=== PATIENT | female | born 1965 | race Caucasian/White ===

== ENCOUNTER 2016-12-12 08:36 | Inpatient (IN) | payer MEDICAID ==
[2016-12-12 09:27] LABS: % IMMATURE GRANULYOCYTES 0.5 % (0.0-1.1); ABSOLUTE IMMATURE GRANULOCYTES 0.04 10^3/uL (0.00-0.10); ADD DIFF? NO; ADD MORPH? NO; ADD SCAN? NO; ATYPICAL LYMPHOCYTE FLAG 10 (0-99); FRAGMENT RBC FLAG 0 (0-99); HEMATOCRIT 37.8 % (38.0-47.0); HEMOGLOBIN 12.6 g/dL (12.6-16.3); LEFT SHIFT FLG 0 (0-99); LIPEMIA HEMOLYSIS FLAG 80 (0-99); MEAN CELL HEMOGLOBIN 30.1 pg (27.9-34.1); MEAN CELL HEMOGLOBIN CONCENTR. 33.3 g/dL (32.4-36.7); MEAN CELL VOLUME 90.2 fL (81.5-99.8); MEAN PLATELET VOLUME 9.8 fL (8.7-11.7); PLATELET CLUMPS FLAG 0 (0-99); PLATELET COUNT 270 10^3/uL (150-400); RED BLOOD CELL COUNT 4.19 10^6/uL (4.18-5.33); RED CELL DISTRIBUTION WIDTH 13.1 % (11.5-15.2)
[2016-12-12 09:34] LABS: ANION GAP 15 mEq/L (8-16); CALCIUM 9.3 mg/dL (8.5-10.4); CARBON DIOXIDE 20 mEq/l (22-31); CHLORIDE 107 mEq/L (97-110); CREATININE 0.8 mg/dL (0.6-1.0); ETHANOL SERUM < 10 mg/dL (0-10); GLOMERULAR FILTRATION RATE > 60; GLUCOSE 86 mg/dL (70-100); SODIUM 142 mEq/L (134-144)
--- NOTE | 2016-12-12 09:45 | EDPHY ---
H & P Stated Complaint: M1 erratic behaviors - Personal History LMP (Females 10-55): Now Current Tetanus/Diphtheria Vaccine: Unsure Current Tetanus Diphtheria and Acellular Pertussis (TDAP): Unsure - Medical/Surgical History Hx Asthma: No Hx Chronic Respiratory Disease: No Hx Diabetes: No Hx Cardiac Disease: No Hx Renal Disease: No Hx Cirrhosis: No Hx Alcoholism: No Hx HIV/AIDS: No Hx Splenectomy or Spleen Trauma: No Other PMH: unsure - Social History Smoking Status: Current every day smoker Time Seen by Provider: 12/12/16 09:01 HPI/ROS: Chief complaint: Mental health hold History of present illness: This is a 51-year-old female brought to the emergency department by police on a mental health hold. According to the mental health hold the patient is thought to be a danger to herself. She has apparently been off of her psychiatric medications recently and has been acting erratically. On my evaluation patient states she feels fine. She denies suicidal or homicidal ideation. She denies illness or injury. However, she does state she needs to leave because her and her family need to leave immediately for [place], [place], they must leave everything behind, they are going there for their own safety. She also states she needs to see her doctor as her and her daughter have HIV infections. Review of systems: A 10 point review of systems was obtained and other than described above was negative (David Santillan) - Physical Exam Exam: General Appearance: Alert, nontoxic. Eyes: Pupils equal and round no pallor or injection. ENT, Mouth: Mucous membranes moist. Respiratory: There are no retractions, lungs are clear to auscultation. Cardiovascular: Regular rate and rhythm. Gastrointestinal: Abdomen is soft and non tender, no masses, bowel sounds normal. Neurological: Alert. Strength and sensation intact and symmetrical. Skin: Warm and dry, no rashes. Musculoskeletal: Neck is supple non tender. Extremities are symmetrical, full range of motion. Psychiatric: Patient is oriented X 3, there is no agitation. (David Santillan) Constitutional: Initial Vital Signs Temperature (C) 36.3 C 12/12/16 08:39 Heart Rate 84 12/12/16 08:39 Respiratory Rate 16 12/12/16 08:39 Blood Pressure 116/77 12/12/16 08:39 O2 Sat (%) 96 12/12/16 08:39 O2 Delivery Mode Room Air Allergies/Adverse Reactions: No Known Allergies Allergy (Unverified 12/12/16 08:41) Home Medications: Medication Instructions Recorded NK [No Known Home Meds] 12/13/16 Medical Decision Making ED Course/Re-evaluation: Patient seen under the supervision of my secondary supervising physician Dr. Guillermina Dimas. Patient presents to the emergency department on a mental health hold. She is medically evaluated and cleared for psychiatric evaluation. The psychiatric team believes she warrants inpatient admission. This is being arranged at this time. Care of patient is turned over to Dr. Estuardo Polanco at end of shift. (David Santillan) [address] Polanco pending placement. 0121 patient has been accepted at [facility] [address] [place] [address] Layne. I have completed the EMTALA form. (Dc Lowe) Patient has remained stable on my shift. At midnight they are still looking for placement. Care to Dr. Lowe at midnight (Estuardo Polanco) Differential Diagnosis: Included but not limited to substance abuse, depression, bipolar, schizophrenia (David Santillan) - Data Points Laboratory Results: Laboratory Results 12/12/16 09:00 12/12/16 09:00 Medications Given: Discontinued Medications Diphenhydramine HCl (Benadryl) 25 mg PO ONCE ONE Stop: 12/13/16 05:31 Last Admin: 12/13/16 05:34 Dose: 25 mg Olanzapine (Olanzapine) 10 mg PO ONCE ONE Stop: 12/13/16 02:23 Last Admin: 12/13/16 02:22 Dose: 10 mg Thiamine HCl (Vitamin B-1) 100 mg PO ONCE ONE Stop: 12/13/16 12:09 Last Admin: 12/13/16 13:30 Dose: 100 mg Departure - Departure Disposition: [facility] IP Clinical Impression: Acute psychosis Condition: Fair
[2016-12-13] MEDS ORDERED: OLANZapine DISINTEGR 5 MG TAB ONE (02:12)
[2016-12-13] MEDS ORDERED: OLANZapine DISINTEGR 10 MG TAB ONE (02:18)
[2016-12-13] MEDS ORDERED: OLANZapine 10 MG TAB PO ONE (02:22)
[2016-12-13] MEDS ORDERED: MAG HYDROX/AL HYDROX/SIMETH 30 ML UDCUP PO PRN (04:43)
[2016-12-13] MEDS ORDERED: NICOTINE POLACRILEX 2 MG GUM B PRN (04:43)
[2016-12-13] MEDS ORDERED: LORazepam 0.5 MG TAB PO PRN (04:43)
[2016-12-13] MEDS ORDERED: OLANZapine DISINTEGR 5 MG TAB PO PRN (04:45)
[2016-12-13] MEDS ORDERED: diphenhydrAMINE 25 MG CAP PO ONE (05:30)
[2016-12-13] MEDS: ACETAMINOPHEN 325 MG TAB PO PRN (08:46)
[2016-12-13] MEDS ORDERED: chlordiazePOXIDE 25 MG CAP PO PRN (12:08)
[2016-12-13] MEDS ORDERED: PROMETHAZINE HCL 25 MG TAB PO PRN (12:08)
[2016-12-13] MEDS ORDERED: THIAMINE HCL 100 MG TAB PO ONE (12:08)
[2016-12-13] MEDS ORDERED: PROMETHAZINE HCL 25 MG SUPPR PR PRN (12:08)
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
[2016-12-13] MEDS: AQUAPHOR OINTMENT 3.5 OZ JAR TP SCH ×2 (15:05→20:08)
--- NOTE | 2016-12-13 18:52 | BCON ---
[f rep st] BEHAVIORAL HEALTH CONSULTATION INTERNAL MEDICINE CONSULTATION DATE OF CONSULTATION: 12/13/2016 REFERRING PHYSICIAN: Yvonne Layne MD REASON FOR REFERRAL: Medical clearance for inpatient behavioral health stay. HISTORY OF PRESENT ILLNESS: This patient was brought to the emergency department on an M1 hold by police. Per the emergency department report, she had been off her psychiatric medications recently and was acting erratically. She was evaluated by the mental health team and admitted for further psychiatric care. She reports that she has a recent diagnosis of HIV at [facility], and she complains of dry skin. She otherwise is without any acute complaints. PAST MEDICAL HISTORY: 1. Mental health issues with the diagnosis of bipolar disorder in the chart. 2. Breast mass. PAST SURGICAL HISTORY: She reports a lumpectomy in the left breast and a section. MEDICATIONS: She reports she was prescribed an antihistamine for pruritus at [facility] and apparently she has previously been on psychiatric medications but has not been compliant. ALLERGIES: No known drug allergies. SOCIAL HISTORY: Complicated. Most recently she has been homeless. She is a smoker but reports she has been trying to quit. She has a history of alcohol and polysubstance abuse. She reports that she has been and has an 11- year-old daughter. FAMILY HISTORY: Noncontributory. REVIEW OF SYSTEMS: She reports that her skin feels irritated, especially over her face and legs. She also reports irritation in her perineal area and says that this is related to not being able to shave while she is on the inpatient behavioral health unit. She denies cough, dyspnea, fevers, chills, recent weight change, nausea, vomiting, constipation, diarrhea. joint swelling, and joint pain. Otherwise, a 10-point review of systems is negative. She does request melatonin for sleep. PHYSICAL EXAMINATION: VITAL SIGNS: Blood pressure is 137/67, heart rate is 73 , respiratory rate is 16, oxygen saturation is 97% on room air, temperature is 36.4 degrees centigrade. Her weight is 56.7 kg, for a body mass index of 23.6. GENERAL: This is a well-nourished, well-developed woman who appears her chronologic age, cooperative, and in no acute distress. HEENT: Extraocular movements are intact. Pupils are equal, round, and reactive to light. Mucous membranes are moist. Airway is uncrowded, Mallampati class I. Dentition is in good condition. NECK: Supple. HEART: Regular rate and rhythm with no murmurs , rubs, or gallops. LUNGS: Clear to auscultation bilaterally. ABDOMEN: Soft , nontender, nondistended with normoactive bowel sounds. EXTREMITIES: No cyanosis, clubbing, or edema. NEUROLOGIC: Alert and oriented to her general situation and location. Month and date were not tested. Cranial nerves 2 through 12 are grossly intact. There is no focal weakness. Sensation is intact to light touch, and gait is within normal limits. SKIN: She has a very short haircut. There are patches of scalp that are bare of hair, especially over the frontal vertex. She has dry skin but no jalen rash. LABORATORY STUDIES: Drawn in the emergency department, CBC was overall within normal limits. She had a very slight decrement in hematocrit at 37.8 with the lower limit of normal being 38. She had an increase in relative percent of neutrophils, but absolute white blood cell count and differential were within normal limits. Serum chemistry revealed a slightly low carbon dioxide at 20. Otherwise, renal function and electrolytes were within normal limits, and beta hCG was negative for . Toxicology screen in the serum was negative for ethyl alcohol, and the urine was negative for any substances of abuse. ASSESSMENT/RECOMMENDATIONS: 1. Xerosis: I will prescribe an emollient for dry skin. 2. Alopecia: May be due to the stress of her current situation. I will add a TSH to labs that were drawn yesterday to be thorough. 3. Self report of human immunosuppressive virus positive. Will ask nursing staff to obtain records from the [facility] to verify, and if no records are available, human immunosuppressive virus testing would be appropriate. 4. I see no medical contraindications to this patient's continued stay on the inpatient behavioral health unit or to any psychiatric medications or procedures. Thank you very much for including me in the care of this patient. Please do not hesitate to contact me or the hospitalists service should there be need for further medical evaluation. /[id number]/MODL MTDD
[2016-12-13] MEDS: OLANZapine DISINTEGR 10 MG TAB PO SCH (20:08)
[2016-12-13] MEDS ORDERED: OLANZapine 10 MG TAB PO SCH (21:00)
[2016-12-14] MEDS: OLANZapine DISINTEGR 10 MG TAB PO SCH ×2 (01:28→20:20)
[2016-12-14] MEDS: ACETAMINOPHEN 325 MG TAB PO PRN ×3 (09:17→20:19)
[2016-12-14] MEDS: MULTIVITAMINS 1 EACH TAB PO SCH (09:18)
[2016-12-14] MEDS: AQUAPHOR OINTMENT 3.5 OZ JAR TP SCH ×2 (09:19→20:19)
[2016-12-14] MEDS: FOLIC ACID 1 MG TAB PO SCH (09:19)
[2016-12-14] MEDS: THIAMINE HCL 100 MG TAB PO SCH (09:22)
--- NOTE | 2016-12-14 12:59 | SOAPPROG ---
SOAP Progress Note Assessment/Plan: Assessment: 12/14/16 12:54 Plan: 1. CCM 2. HIV test negative, TSH WNL 3. CIWA < 4 4. No updates yet on whereabouts of patient's daughter or whether she is still open with [facility]. Subjective: Met with patient and discussed with staff. Patient was dressed in street clothes , wearing a hat. She said she woke up this AM and went to breakfast. She wanted to attend art therapy group, but says she got "frustrated" because a "couple women are bothering me" and says she "did not feel comfortable going to group." So she stayed in her room and took a nap. She denies any AH/VH, and there is no evidence of paranoia or delusions. She does not have pressured speech, racing thoughts, or decreased need for sleep or increased goal-directed activity. Based on these observations, patient does not meet criteria for either a psychotic disorder or bipolar disorder. She denies feeling depressed and reports anxiety is 3 out of 10. She denies any physical sxs of w/d and her CIWA score was < 4. Her vital signs are stable. She denies any thoughts, plan or intent to harm herself or anyone else. Objective: Vital Signs Temp Pulse Resp BP Pulse Ox 36.4 C 78 12 109/64 98 12/14/16 09:01 12/14/16 09:01 12/14/16 09:01 12/14/16 09:01 12/14/16 09:01 MSE: Calm, cooperative, pleasant, wearing hat, sleeveless T-shirt and pants. Affect: Euthymic Mood: "Frustrated" TP: Linear, goal-directed TC: Denies any AH/VH, no evidence of paranoia or delusions, no SI/HI. - Time Spent With Patient Time Spent With Patient: 25" - Pending Discharge Pending Discharge Within 24 Hours: No ICD10 Worksheet Patient Problems: Problems Problem Status Onset Acute psychosis Acute Alcohol use disorder, severe, dependence Acute Substance induced mood disorder Acute - ICD10 Problem Qualifiers (1) Substance induced mood disorder (2) Alcohol use disorder, severe, dependence
[2016-12-14] MEDS: hydrOXYzine HCL 25 MG TAB PO PRN (20:20)
[2016-12-15] MEDS: hydrOXYzine HCL 25 MG TAB PO PRN (07:56)
[2016-12-15] MEDS: FOLIC ACID 1 MG TAB PO SCH (08:41)
[2016-12-15] MEDS: THIAMINE HCL 100 MG TAB PO SCH (08:41)
[2016-12-15] MEDS: ACETAMINOPHEN 325 MG TAB PO PRN (08:41)
[2016-12-15] MEDS: MULTIVITAMINS 1 EACH TAB PO SCH (08:41)
[2016-12-15] MEDS: AQUAPHOR OINTMENT 3.5 OZ JAR TP SCH ×2 (11:10→20:57)
--- NOTE | 2016-12-15 13:01 | SOAPPROG ---
SOAP Progress Note Assessment/Plan: Assessment: 12/14/16 12:54 Plan: 1. CCM 2. HIV test negative, TSH WNL 3. CIWA < 4 4. No updates yet on whereabouts of patient's daughter or whether she is still open with [facility]. 12/15/16 12:31 Plan: 1. CC obtained collateral information from patient's BOC, Valente Walekr, who has medical durable power of tax associate attorney for healthcare decisions (a copy of the medical POA is on the chart). According to BOC, patient has long h/o chronic paranoid schizophrenia. He states she had been taking Seroquel 300mg daily for about 20 years. BOC states this medication was usually sufficient to maintain her in stable condition without severe psychotic episodes. [facility] also relates that patient stopped drinking alcohol in 1988, and as far as he knows, patient has not been using drugs or alcohol in past 20 years. He told CC that patient tells providers that she has been drinking or using drugs b/c she thinks it will get her housing, but BOC says urine drug screens in recent past have always shown no drugs or alcohol use. [facility] states that patient has h/o trichotillomania, and has pulled most of her hair out including her eyebrows. [facility] was also able to confirm that patient's daughter was removed from her custody by [facility] in [facility] and her daughter was placed in foster care there. Patient was living in [facility]p, [facility], in [place] prior to her admission to [facility] in 09/2016. However, BOC states she became paranoid and thought there was a "sex ring" going on at the usp which is how she got admitted to [facility]. [facility] also sent medical records from recent inpatient admission at [facility] in [facility] from 10/05/16 to 10/18/16. The Discharge Summary was written by DAVID Peres, and co-signed by Chris Wilson MD. They noted that patient was initially titrated onto high dose of Seroquel (800mg), but that she refused this dose stating she didn't like the way it made her feel. Prior to admission, patient reported that she had been non-compliant with her outpatient dose of 300mg QHS because it "altered her brain thinking" and she told her providers she would "never go back on it." She just wants "herbs and teas." Patient initially refused Seroquel from 10/07/16 until 10/12/16, when she finally agreed to take Seroquel 100mg QHS upon urging of her BOC. She was titrated up to 300mg QHS at time of discharge. Originally, the plan was for patient to go back to [place] and be seen at [facility] outpatient clinic. However, records indicate on day of discharge, 10/18/16, she took the bus to [place] and had f/u at [facility]. She was discharged on the following meds: 1. Seroquel 300mg PO QHS 2. Tegretol 200mg PO QHS 3. Melatonin 3mg PO QHS 4. Cogentin 1mg PO QHS It doesn't seem like patient ever made it to [place]. According to BOC, FOC wired patient some money and she used it to stay in hotel in [place]. She never went to her f/u appt at [facility] and stopped taking her meds completely. It's still not clear how/why she came to [place]. Of note, physical description of patient at [facility] was that she had "shoulder length blonde hair." Her hair now is close cropped with several bald patches. 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 2. Based on this recently obtained collateral information, MD would make following recommendations to tx plan: -Change Zyprexa to Seroquel since this medication has shown noticeable effects for patient's psychosis over past 20 years -Based on [facility] report of sxs and prior tx/diagnoses, a dx of bipolar does not seem warranted (this was the working dx at [facility]). A more accurate and historically valid dx would be Schizophrenia, paranoid type. Further evidence that supports this is the fact that patient took Seroquel 300mg without any first line mood stabilizer for 20 years and BOC says she was relatively stable on this monotherapy. -D/C CIWA as patient's report of daily vodka use is questionable given BOC's information and lack of BAL in ED. -Patient has not been observed picking her hair on unit. There are some effective behavioral therapies for trichotillomania, but very little clinical trial data to support use of pharamacologic agents. There is some evidence for use of SSRIs in kids, but not very strong evidence for use in adults. This might be something to try once psychosis is better controlled. 3. Will place patient on [facility]. However, since BOC has medical durable POA, he is able to consent to admission as well as give consent for any medications. This MD believes it may also be possible to give IM medications if patient refuses PO meds as long as BOC consents. This can be verified with hospital foreclosure paralegal should the need arise. Subjective: Met with patient and discussed with staff. Please see Plan section of this note for extensive collateral information provided by brother and review of medical records from [facility]. Patient states that she is leaving "at 8am tomorrow " to go to [place], [place]. She continues to insist that her daughter is living there with her boyfriend, even though patient's BOC confirmed her daughter is in foster placement in custody of [facility]. Patient's BOC has medical durable POA, which means he can consent to any medications and treatment. Patient denies any SI/HI. Objective: Vital Signs Temp Pulse Resp BP Pulse Ox 36.6 C 85 14 119/68 96 12/15/16 05:00 12/15/16 05:00 12/15/16 05:00 12/15/16 05:00 12/15/16 05:00 MSE: Patient is wearing black pants and black tank top with zip up sweater, hat and glasses. Affect: Euthymic, not mood congruent Mood: "Anxious", other times states she is doing "pretty good." TP: disorganized, tangential TC: Delusional (about daughter), no SI/HI Insight/Judgment: Impaired - Time Spent With Patient Time Spent With Patient: 30" - Pending Discharge Pending Discharge Within 24 Hours: No ICD10 Worksheet Patient Problems: Problems Problem Status Onset Schizophrenia, paranoid, chronic Acute Trichotillomania Acute Acute psychosis Chronic Alcohol use disorder, severe, in sustained remission Chronic - ICD10 Problem Qualifiers (1) Alcohol use disorder, severe, in sustained remission (2) Schizophrenia, paranoid, chronic (3) Trichotillomania
[2016-12-15] MEDS: MELATONIN 3 MG TAB PO PRN (20:54)
[2016-12-15] MEDS ORDERED: QUEtiapine FUMARATE 100 MG TAB PO SCH (21:00)
[2016-12-16] MEDS: AQUAPHOR OINTMENT 3.5 OZ JAR TP SCH ×2 (08:11→20:33)
[2016-12-16] MEDS: MULTIVITAMINS 1 EACH TAB PO SCH (08:11)
[2016-12-16] MEDS: hydrOXYzine HCL 25 MG TAB PO PRN ×2 (09:48→14:12)
--- NOTE | 2016-12-16 15:44 | SOAPPROG ---
SOAP Progress Note Assessment/Plan: Assessment: 51yo with chronic paranoid SZP and hx of trichtillomania, 20+yr reportedly stable on low dose Seroquel. most recent inpt psych 09/2016 and n/c w / meds after d/c 12/16/16 15:41 slept 8.5hr per staff "I'm leaving at 8pm tonight, I called a cab to take me to [place], I need an antihistamine b/c people here are bugging me, I'm under police protection now." casually dressed, nml speech rate/vol, hair very short and patchy, taking baseball cap on and off, eye contact variable at times nml, then shifting quickly to no clear stimulus, then watching a male walk by and giggling to herself, then downcast with face obscured by cap, mood "I have cramps and you are irritating me", affect labile, TP/TC-+paranoid delusions, insisting she is currently under police protection and can't further discuss why, hypervigilant and seems responding to internal stimuli as noted by briefly whispering to self unrelated to conversation, and laughing inappropriately in response to her own thoughts. t/a having psychic abilities, regarding AH/VH-"I wish they weren't real...I see babies about to come down and Shan when he speaks to me, I help locate bodies after they've ..I'm a messenger and a guide, I have to be so I don't have to sell my body to the devil...my daughter also has this (psychic ability) and I want to learn how to control it so I can teach her..." Maintains firmly that she is despite neg serum Hcg on 12/12, and states she will refuse all meds unless seen by COMPENSATION PROGRAMS MANAGER for her . i/j both poor, cognition intact. PLAN: increase quetiapine to 300mg qhs as reportedly stabilized on this dose in the past encourage use of quetiapine 25mg q4hr prn psychosis on [facility] 12/17/16 16:40 Objective: Vital Signs Temp Pulse Resp BP Pulse Ox 36.5 C 91 14 124/61 H 96 12/16/16 06:00 12/16/16 06:00 12/16/16 06:00 12/16/16 06:00 12/16/16 06:00 - Time Spent With Patient Time Spent With Patient: 35min - Pending Discharge Pending Discharge Within 24 Hours: No Pending Discharge Within 48 Hours: No ICD10 Worksheet Patient Problems: Problems Problem Status Onset Schizophrenia, paranoid, chronic Acute Trichotillomania Acute Acute psychosis Chronic Alcohol use disorder, severe, in sustained remission Chronic
[2016-12-16] MEDS: QUEtiapine FUMARATE 300 MG TAB PO SCH (20:33)
[2016-12-16] MEDS ORDERED: QUEtiapine FUMARATE 200 MG TAB PO SCH ×2 (21:00)
[2016-12-16] MEDS ORDERED: QUEtiapine FUMARATE 100 MG TAB PO SCH (21:00)
[2016-12-17] MEDS: hydrOXYzine HCL 25 MG TAB PO PRN (02:09)
[2016-12-17] MEDS: AQUAPHOR OINTMENT 3.5 OZ JAR TP SCH ×2 (13:33→21:20)
[2016-12-17] MEDS: MULTIVITAMINS 1 EACH TAB PO SCH (13:33)
[2016-12-17] MEDS: QUEtiapine FUMARATE 300 MG TAB PO SCH (22:03)
--- NOTE | 2016-12-17 23:52 | SOAPPROG ---
SOAP Progress Note Assessment/Plan: Assessment: 51yo with chronic paranoid SZP and hx of trichtillomania, 20+yr reportedly stable on low dose Seroquel. most recent inpt psych 09/2016 and n/c w / meds after d/c 12/16/16 15:41 slept 8.5hr per staff "I'm leaving at 8pm tonight, I called a cab to take me to [place], I need an antihistamine b/c people here are bugging me, I'm under police protection now." casually dressed, nml speech rate/vol, hair very short and patchy, taking baseball cap on and off, eye contact variable at times nml, then shifting quickly to no clear stimulus, then watching a male walk by and giggling to herself, then downcast with face obscured by cap, mood "I have cramps and you are irritating me", affect labile, TP/TC-+paranoid delusions, insisting she is currently under police protection and can't further discuss why, hypervigilant and seems responding to internal stimuli as noted by briefly whispering to self unrelated to conversation, and laughing inappropriately in response to her own thoughts. t/a having psychic abilities, regarding AH/VH-"I wish they weren't real...I see babies about to come down and Shan when he speaks to me, I help locate bodies after they've ..I'm a messenger and a guide, I have to be so I don't have to sell my body to the devil...my daughter also has this (psychic ability) and I want to learn how to control it so I can teach her..." Maintains firmly that she is despite neg serum Hcg on 12/12, and states she will refuse all meds unless seen by MANAGER APPLE for her . i/j both poor, cognition intact. PLAN: increase quetiapine to 300mg qhs as reportedly stabilized on this dose in the past encourage use of quetiapine 25mg q4hr prn psychosis on [facility] 12/17/16 16:38 per staff, slept 8hr, remains very psychotic and delusional. took HS meds. states has "vivid nightmares" and interested in a heating and cooling systems engineer consult. numerous requests for chapstick, steroid cream, vanilla and dre Ensure, MVI for her etc. casually dressed, nml/incr speech rate, needing some redirection, incr psychom activity, nml eye contact, mood "good", affect full, TP/TC- tangential, rambling, admits to +AH of a friend which wakes her up every AM, AH are comforting so she is "not by myself", "the other voices are private conversations" she chooses not to share. +delusions of being . t/a young male peers on unit (who are also very psychotic) "like a little big brother" and adds "the men here are funny". denied SI/Hi. i/j poor. PLAN: cont current meds, consider incr tomorrow, encourage use of prns Objective: Vital Signs Temp Pulse Resp BP Pulse Ox 36.4 C 103 H 14 118/77 94 12/17/16 06:00 12/17/16 06:00 12/17/16 06:00 12/17/16 06:00 12/17/16 06:00 - Time Spent With Patient Time Spent With Patient: 25min - Pending Discharge Pending Discharge Within 24 Hours: No Pending Discharge Within 48 Hours: No ICD10 Worksheet Patient Problems: Problems Problem Status Onset Schizophrenia, paranoid, chronic Acute Trichotillomania Acute Acute psychosis Chronic Alcohol use disorder, severe, in sustained remission Chronic
[2016-12-18] MEDS: MULTIVITAMINS 1 EACH TAB PO SCH (08:47)
[2016-12-18] MEDS: AQUAPHOR OINTMENT 3.5 OZ JAR TP SCH ×2 (08:52→21:45)
[2016-12-18] MEDS: QUEtiapine FUMARATE 200 MG TAB PO SCH (21:41)
[2016-12-18] MEDS: hydrOXYzine HCL 25 MG TAB PO PRN (23:28)
[2016-12-18] MEDS: MELATONIN 3 MG TAB PO PRN (23:29)
--- NOTE | 2016-12-18 23:56 | SOAPPROG ---
SOAP Progress Note Assessment/Plan: Assessment: 51yo with chronic paranoid SZP and hx of trichtillomania, 20+yr reportedly stable on low dose Seroquel. most recent inpt psych 09/2016 and n/c w / meds after d/c 12/16/16 15:41 slept 8.5hr per staff "I'm leaving at 8pm tonight, I called a cab to take me to [place], I need an antihistamine b/c people here are bugging me, I'm under police protection now." casually dressed, nml speech rate/vol, hair very short and patchy, taking baseball cap on and off, eye contact variable at times nml, then shifting quickly to no clear stimulus, then watching a male walk by and giggling to herself, then downcast with face obscured by cap, mood "I have cramps and you are irritating me", affect labile, TP/TC-+paranoid delusions, insisting she is currently under police protection and can't further discuss why, hypervigilant and seems responding to internal stimuli as noted by briefly whispering to self unrelated to conversation, and laughing inappropriately in response to her own thoughts. t/a having psychic abilities, regarding AH/VH-"I wish they weren't real...I see babies about to come down and Shan when he speaks to me, I help locate bodies after they've ..I'm a messenger and a guide, I have to be so I don't have to sell my body to the devil...my daughter also has this (psychic ability) and I want to learn how to control it so I can teach her..." Maintains firmly that she is despite neg serum Hcg on 12/12, and states she will refuse all meds unless seen by MEDICAL DELIVERY TECHNICIAN for her . i/j both poor, cognition intact. PLAN: increase quetiapine to 300mg qhs as reportedly stabilized on this dose in the past encourage use of quetiapine 25mg q4hr prn psychosis on [facility] 12/17/16 16:38 per staff, slept 8hr, remains very psychotic and delusional. took HS meds. states has "vivid nightmares" and interested in a contract recruiter consult. numerous requests for chapstick, steroid cream, vanilla and dre Ensure, MVI for her etc. casually dressed, nml/incr speech rate, needing some redirection, incr psychom activity, nml eye contact, mood "good", affect full, TP/TC- tangential, rambling, admits to +AH of a friend which wakes her up every AM, AH are comforting so she is "not by myself", "the other voices are private conversations" she chooses not to share. +delusions of being . t/a young male peers on unit (who are also very psychotic) "like a little big brother" and adds "the men here are funny". denied SI/Hi. i/j poor. PLAN: cont current meds, consider incr tomorrow, encourage use of prns 12/18/16 13:51 slept 4.5hr throwing toiletries away daily and requesting new, asking for more clothes daily too staff setting limits and pt frustrated. making lists of toiletries and wants my signature on this list. disorganized behavior, illogical thought processes. denied current ah/vh but has been noted responding to internal stimuli. denied med s/e. "you are irritating me", denied SI but regarding thoughts to harm others she impusively stated "yeah, you, you are my target and in my zone...I'm and want to improve the rights for women who come here after me..." Then at end of interview, stated "I love you". PLAN: incr seroquel to 400mg qhs with 50mg prns avail cont on [facility] Objective: Vital Signs Temp Pulse Resp BP Pulse Ox 36.4 C 102 H 14 105/58 L 97 12/17/16 06:00 12/18/16 06:00 12/18/16 06:00 12/18/16 06:00 12/18/16 06:00 - Time Spent With Patient Time Spent With Patient: 25min - Pending Discharge Pending Discharge Within 24 Hours: No Pending Discharge Within 48 Hours: No ICD10 Worksheet Patient Problems: Problems Problem Status Onset Schizophrenia, paranoid, chronic Acute Trichotillomania Acute Acute psychosis Chronic Alcohol use disorder, severe, in sustained remission Chronic
[2016-12-19] MEDS: hydrOXYzine HCL 25 MG TAB PO PRN ×4 (07:10→22:53)
[2016-12-19] MEDS: MULTIVITAMINS 1 EACH TAB PO SCH (11:14)
[2016-12-19] MEDS: AQUAPHOR OINTMENT 3.5 OZ JAR TP SCH ×2 (11:16→21:40)
[2016-12-19] MEDS: IBUPROFEN 200 MG TAB PO PRN (18:30)
[2016-12-19] MEDS: QUEtiapine FUMARATE 200 MG TAB PO SCH (21:40)
[2016-12-19] MEDS: MELATONIN 3 MG TAB PO PRN (22:53)
[2016-12-20] MEDS: MULTIVITAMINS 1 EACH TAB PO SCH (07:44)
[2016-12-20] MEDS: hydrOXYzine HCL 25 MG TAB PO PRN ×2 (07:44→18:00)
[2016-12-20] MEDS: AQUAPHOR OINTMENT 3.5 OZ JAR TP SCH ×2 (09:58→22:40)
--- NOTE | 2016-12-20 21:06 | SOAPPROG ---
SOAP Progress Note Assessment/Plan: Assessment: 51yo with chronic paranoid SZP and hx of trichtillomania, 20+yr reportedly stable on low dose Seroquel. most recent inpt psych 09/2016 and n/c w / meds after d/c 12/16/16 15:41 slept 8.5hr per staff "I'm leaving at 8pm tonight, I called a cab to take me to [place], I need an antihistamine b/c people here are bugging me, I'm under police protection now." casually dressed, nml speech rate/vol, hair very short and patchy, taking baseball cap on and off, eye contact variable at times nml, then shifting quickly to no clear stimulus, then watching a male walk by and giggling to herself, then downcast with face obscured by cap, mood "I have cramps and you are irritating me", affect labile, TP/TC-+paranoid delusions, insisting she is currently under police protection and can't further discuss why, hypervigilant and seems responding to internal stimuli as noted by briefly whispering to self unrelated to conversation, and laughing inappropriately in response to her own thoughts. t/a having psychic abilities, regarding AH/VH-"I wish they weren't real...I see babies about to come down and Shan when he speaks to me, I help locate bodies after they've ..I'm a messenger and a guide, I have to be so I don't have to sell my body to the devil...my daughter also has this (psychic ability) and I want to learn how to control it so I can teach her..." Maintains firmly that she is despite neg serum Hcg on 12/12, and states she will refuse all meds unless seen by MAINTAINER OPERATOR for her . i/j both poor, cognition intact. PLAN: increase quetiapine to 300mg qhs as reportedly stabilized on this dose in the past encourage use of quetiapine 25mg q4hr prn psychosis on [facility] 12/17/16 16:38 per staff, slept 8hr, remains very psychotic and delusional. took HS meds. states has "vivid nightmares" and interested in a derrick boat leverman consult. numerous requests for chapstick, steroid cream, vanilla and dre Ensure, MVI for her etc. casually dressed, nml/incr speech rate, needing some redirection, incr psychom activity, nml eye contact, mood "good", affect full, TP/TC- tangential, rambling, admits to +AH of a friend which wakes her up every AM, AH are comforting so she is "not by myself", "the other voices are private conversations" she chooses not to share. +delusions of being . t/a young male peers on unit (who are also very psychotic) "like a little big brother" and adds "the men here are funny". denied SI/Hi. i/j poor. PLAN: cont current meds, consider incr tomorrow, encourage use of prns 12/18/16 13:51 slept 4.5hr throwing toiletries away daily and requesting new, asking for more clothes daily too staff setting limits and pt frustrated. making lists of toiletries and wants my signature on this list. disorganized behavior, illogical thought processes. denied current ah/vh but has been noted responding to internal stimuli. denied med s/e. "you are irritating me", denied SI but regarding thoughts to harm others she impusively stated "yeah, you, you are my target and in my zone...I'm and want to improve the rights for women who come here after me..." Then at end of interview, stated "I love you". PLAN: incr seroquel to 400mg qhs with 50mg prns avail cont on [facility] 12/19/16 12:10 late entry: slept 6hr. remained standing during interview, "I don't feel safe sitting in a chair". maintains delusion about being and therefore med n/c. when offered to recheck with [facility] and show results, pt admitted she would not believe the test anyway. "I will never take meds again". when asked about mood: stated "I miss my child...Are we done? I think we're done", and terminated interview. irritable affect today. some incr psychom activity. +delusions. did not appear responding to int stim, and has not voiced any si/hi. no insight. poor jdgmt. PLAN: cont to offer meds. will consider decr to 300mg qhs of seroquel since started n/ c once dose increased. suspect will need more therapeutic dose, higher, of seroquel before stabilizes or alternative antipsychotic, ideally in IM since w/ hx noncompliance. on [facility] 12/20/16 12:18 Late entry slept 6.5hr per staff. has been washing face excessively with soap, causing some dryness and redness on face. still refusing HS scheduled seroquel. requests motrin, vistaril, incr melatonin at hs, and prn ativan, oatmeal soap. "and I don't want you to check a test, b/c I want to be with my when it's checked". States she will first need to pray and communicate with her , which is how she communicates with him. "and my mother is in the [facility] half-way" for drugs and alcohol", states mother is in [place] "and she kept me in half-way for 10days so I'm going to do the same to her". No verification of any of this information. talked some of her MH treatment in [place], [place] with psychiatrist and counsellor "but they're all now." no physical complaints except facial redness and requesting steroid cream. MSE: casually dressed, talkative but not pressured, mood "fine", affect somewhat anxious, thoughts tangential, loose and delusional, no si/hi and denied ah/vh although reports ability to communicate with telepathically and through prayer. i/j poor. PLAN: cont on [facility], cont to offer meds. may need c.o. meds. instructed to limit face washing, monitor Objective: Vital Signs Temp Pulse Resp BP Pulse Ox 36.6 C 82 14 114/68 95 12/20/16 05:52 12/20/16 05:52 12/20/16 05:52 12/20/16 05:52 12/20/16 05:52 - Time Spent With Patient Time Spent With Patient: 25min - Pending Discharge Pending Discharge Within 24 Hours: No Pending Discharge Within 48 Hours: No ICD10 Worksheet Patient Problems: Problems Problem Status Onset Schizophrenia, paranoid, chronic Acute Trichotillomania Acute Acute psychosis Chronic Alcohol use disorder, severe, in sustained remission Chronic
--- NOTE | 2016-12-20 21:06 | SOAPPROG ---
SOAP Progress Note Assessment/Plan: Assessment: 51yo with chronic paranoid SZP and hx of trichtillomania, 20+yr reportedly stable on low dose Seroquel. most recent inpt psych 09/2016 and n/c w / meds after d/c 12/16/16 15:41 slept 8.5hr per staff "I'm leaving at 8pm tonight, I called a cab to take me to [place], I need an antihistamine b/c people here are bugging me, I'm under police protection now." casually dressed, nml speech rate/vol, hair very short and patchy, taking baseball cap on and off, eye contact variable at times nml, then shifting quickly to no clear stimulus, then watching a male walk by and giggling to herself, then downcast with face obscured by cap, mood "I have cramps and you are irritating me", affect labile, TP/TC-+paranoid delusions, insisting she is currently under police protection and can't further discuss why, hypervigilant and seems responding to internal stimuli as noted by briefly whispering to self unrelated to conversation, and laughing inappropriately in response to her own thoughts. t/a having psychic abilities, regarding AH/VH-"I wish they weren't real...I see babies about to come down and Shan when he speaks to me, I help locate bodies after they've ..I'm a messenger and a guide, I have to be so I don't have to sell my body to the devil...my daughter also has this (psychic ability) and I want to learn how to control it so I can teach her..." Maintains firmly that she is despite neg serum Hcg on 12/12, and states she will refuse all meds unless seen by [facility] for her . i/j both poor, cognition intact. PLAN: increase quetiapine to 300mg qhs as reportedly stabilized on this dose in the past encourage use of quetiapine 25mg q4hr prn psychosis on [facility] 12/17/16 16:38 per staff, slept 8hr, remains very psychotic and delusional. took HS meds. states has "vivid nightmares" and interested in a mail courier consult. numerous requests for chapstick, steroid cream, vanilla and dre Ensure, MVI for her etc. casually dressed, nml/incr speech rate, needing some redirection, incr psychom activity, nml eye contact, mood "good", affect full, TP/TC- tangential, rambling, admits to +AH of a friend which wakes her up every AM, AH are comforting so she is "not by myself", "the other voices are private conversations" she chooses not to share. +delusions of being . t/a young male peers on unit (who are also very psychotic) "like a little big brother" and adds "the men here are funny". denied SI/Hi. i/j poor. PLAN: cont current meds, consider incr tomorrow, encourage use of prns 12/18/16 13:51 slept 4.5hr throwing toiletries away daily and requesting new, asking for more clothes daily too staff setting limits and pt frustrated. making lists of toiletries and wants my signature on this list. disorganized behavior, illogical thought processes. denied current ah/vh but has been noted responding to internal stimuli. denied med s/e. "you are irritating me", denied SI but regarding thoughts to harm others she impusively stated "yeah, you, you are my target and in my zone...I'm and want to improve the rights for women who come here after me..." Then at end of interview, stated "I love you". PLAN: incr seroquel to 400mg qhs with 50mg prns avail cont on [facility] 12/19/16 12:10 late entry: slept 6hr. remained standing during interview, "I don't feel safe sitting in a chair". maintains delusion about being and therefore med n/c. when offered to recheck with [facility] and show results, pt admitted she would not believe the test anyway. "I will never take meds again". when asked about mood: stated "I miss my child...Are we done? I think we're done", and terminated interview. irritable affect today. some incr psychom activity. +delusions. did not appear responding to int stim, and has not voiced any si/hi. no insight. poor jdgmt. PLAN: cont to offer meds. will consider decr to 300mg qhs of seroquel since started n/ c once dose increased. suspect will need more therapeutic dose, higher, of seroquel before stabilizes or alternative antipsychotic, ideally in IM since w/ hx noncompliance. on [facility] Objective: Vital Signs Temp Pulse Resp BP Pulse Ox 36.6 C 82 14 114/68 95 12/20/16 05:52 12/20/16 05:52 12/20/16 05:52 12/20/16 05:52 12/20/16 05:52 - Pending Discharge Pending Discharge Within 24 Hours: No Pending Discharge Within 48 Hours: No ICD10 Worksheet Patient Problems: Problems Problem Status Onset Schizophrenia, paranoid, chronic Acute Trichotillomania Acute Acute psychosis Chronic Alcohol use disorder, severe, in sustained remission Chronic
[2016-12-20] MEDS: QUEtiapine FUMARATE 200 MG TAB PO SCH (22:40)
[2016-12-21] MEDS: IBUPROFEN 200 MG TAB PO PRN ×2 (00:13→10:34)
[2016-12-21] MEDS: MELATONIN 3 MG TAB PO PRN ×2 (00:13→20:52)
[2016-12-21] MEDS: hydrOXYzine HCL 25 MG TAB PO PRN ×3 (00:14→17:44)
[2016-12-21] MEDS: MULTIVITAMINS 1 EACH TAB PO SCH (09:36)
[2016-12-21] MEDS: AQUAPHOR OINTMENT 3.5 OZ JAR TP SCH ×2 (10:39→20:56)
[2016-12-21] MEDS ORDERED: QUEtiapine FUMARATE 25 MG TAB PO ONE (11:22)
--- NOTE | 2016-12-21 16:10 | SOAPPROG ---
SOAP Progress Note Assessment/Plan: Assessment:Patient with schizophrenia with continued delusion she is ; even though, her test is negative. She wants multiple medications for her alleged of two weeks including Folate and a vitamin. She also wants some maternity clothing. She was willing to take Seroquel this AM, and she reports she will take 400 MG this evening. She is asking for Melatonin for her anxiety because it allegedly helped her get off of Adderall, Trileptal, Seroquel, and Paxil. Plan: Will encourage her to take her medication as prescribed. She did agree to take a dose of the Seroquel. She was given a one time dose of 25 MG, which she tolerated. 12/21/16 16:10 12/23/16 10:58 Subjective: She wants pants that fit and tennis shoes. She wants to work out, but she finds the exercise bike is to high even with the seat adjusted. She is excited about leaving to be close to her daughter Arelis. She reports her only fear is Shan because she is a God fearing woman. "Don't you fear God?" When asked why this was important, she replied, "Because you're e my sister in [place], I need you to stand tall next to me." She acknowledges increased energy and racing thoughts. She reports good bowel movements, but she reports her stomach hurts. Objective: Vital Signs Temp Pulse Resp BP Pulse Ox 36.7 C 86 14 124/66 H 95 12/21/16 06:00 12/21/16 06:00 12/21/16 06:00 12/21/16 06:00 12/21/16 06:00 female dressed in a soiled hoodie jacket and with a cap cover her head that has bald patches where she has pulled out her hair. Relaxed sitting in a hair. Good eye contact. Speech- Hyperverbal. Mood- "I'm excited about leaving and getting close to my target." Thought Process- Tangential, flight of ideas. Thought Content - No SI/HI. +Delusional. Insight - Poor. Judgment- Fair, but it is improving. - Time Spent With Patient Time Spent With Patient: 25 - Pending Discharge Pending Discharge Within 24 Hours: No Pending Discharge Within 48 Hours: No ICD10 Worksheet Patient Problems: Problems Problem Status Onset Schizophrenia, paranoid, chronic Acute Trichotillomania Acute Acute psychosis Chronic Alcohol use disorder, severe, in sustained remission Chronic
[2016-12-21] MEDS: QUEtiapine FUMARATE 200 MG TAB PO SCH (20:56)
[2016-12-22] MEDS: hydrOXYzine HCL 25 MG TAB PO PRN ×3 (07:23→21:06)
[2016-12-22] MEDS: IBUPROFEN 200 MG TAB PO PRN ×2 (07:25→13:23)
[2016-12-22] MEDS: AQUAPHOR OINTMENT 3.5 OZ JAR TP SCH ×2 (08:33→21:59)
[2016-12-22] MEDS: MULTIVITAMINS 1 EACH TAB PO SCH (08:33)
[2016-12-22] MEDS ORDERED: OLANZapine 5 MG TAB PO ONE (11:16)
--- NOTE | 2016-12-22 12:22 | SOAPPROG ---
SOAP Progress Note Assessment/Plan: Assessment:Patient with schizophrenia with continued delusion she is ; even though, her test is negative. She continue to take about taking Melatonin for sleep. She found the Seroquel too sedating. She is willing to try Zyprexa if it is okay to take while . Her insight and judgment are still poor. Plan: Will encourage her to take her medication as prescribed. She did agree to take a dose of Zyprexa. She will be given a one time dose of 5 MG. 12/21/16 16:10 12/22/16 12:22 Subjective: "Can I go get some paper because I need to write stuff down?" "What's the name of the house? Um, [facility], that's it. What is the other one that starts with an M?" "[facility]." "DO you have the number?" "Do you have the address." I'm doing pretty good. She reports she did nt take Seroquel last night because it is too sedating for her and "the baby." She did not sleep the great last night. She felt antsy and anxious. She was also missing her little girl. She is "dying to get to the house to meet other 12 step people because I don't like walking or taking the bus to get to AA." She is missing her dad. She had a breakthrough with her mother. She does not want to talk to her brother and daughter just yet. Her son will take more time. They did much to protect me." Objective: Vital Signs Temp Pulse Resp BP Pulse Ox 36.7 C 80 14 119/61 94 12/22/16 04:55 12/22/16 04:55 12/22/16 04:55 12/22/16 04:55 12/22/16 04:55 female with short patchy hair relaxed sitting in a chair. Good eye contact. Speech- Pressured. Mood- "I'm kind of thirsty. I would like some orange juice." Affect- Euthymic. Thought Process- Flight of ideals. Thought Content - No SI/HI. +delusional. Insight and judgment poor. - Time Spent With Patient Time Spent With Patient: 25 - Pending Discharge Pending Discharge Within 24 Hours: No Pending Discharge Within 48 Hours: No ICD10 Worksheet Patient Problems: Problems Problem Status Onset Schizophrenia, paranoid, chronic Acute Trichotillomania Acute Acute psychosis Chronic Alcohol use disorder, severe, in sustained remission Chronic
[2016-12-22] MEDS: QUEtiapine FUMARATE 200 MG TAB PO SCH (21:05)
[2016-12-23] MEDS: MULTIVITAMINS 1 EACH TAB PO SCH (09:28)
[2016-12-23] MEDS: AQUAPHOR OINTMENT 3.5 OZ JAR TP SCH ×2 (09:39→22:15)
[2016-12-23] MEDS: hydrOXYzine HCL 25 MG TAB PO PRN ×2 (11:08→18:41)
[2016-12-23] MEDS: QUEtiapine FUMARATE 25 MG TAB PO PRN (12:35)
--- NOTE | 2016-12-23 15:22 | SOAPPROG ---
SOAP Progress Note Assessment/Plan: Assessment:Patient with schizophrenia with continued delusion she is ; even though, her test is negative. She now reporting she has HIV, and she needs medications to protect her baby from it. She did have a negative HIV test this admission. She disliked Zyprexa, but she is now open to continuing to take Seroquel. Her insight and judgment are still poor. Plan: Will encourage her to take her medication as prescribed. 12/21/16 16:10 12/22/16 12:22 12/23/16 15:17 Subjective: She reports she is reading [place] and [employer]. She is underlying words in the books. She is copying words from each book to look up in a dictionary(has a composition book full of words). She actually would like a third composition book to use to continue writing words to look up. She reports taking the Zyprexa yesterday, and it causing her to feel dehydrated and unable to breath. She also felt her sinuses were "closing down too much, " so she prefers to take Seroquel. She reports terrible sleep due to nausea. She doesn't remember sleeping 9 hours. She ate ice chips and drank Meghan Sabrina to counteract this. She reports she has been getting sick easily. She felt heavy when she woke up. She had nightmares about people in her family that scare her. Depression - 10. No SI/HI. "I get mad and throw things at times," but she denies doing that here. Anxiety -12 because of the redness on her chin. She wants to leave Sunday or Sunday to get on some HIV medications. She reports needing medications for her baby and herself. She reports the [facility] told her she has HIV. "You can test me." Objective: Vital Signs Temp Pulse Resp BP Pulse Ox 36.2 C 108 H 14 124/52 H 95 12/23/16 05:17 12/23/16 05:17 12/23/16 05:17 12/23/16 05:17 12/23/16 05:17 female with patchy short hair, appropriately dressed. Good eye contact. Hyperverbal. Mood- Fine. Affect- Hypomanic. Euthymic. Thought Process - linear and goal directed. Thought Content - No SI/HI. No AH/VH. +delusional. - Time Spent With Patient Time Spent With Patient: 25 - Pending Discharge Pending Discharge Within 24 Hours: No Pending Discharge Within 48 Hours: No ICD10 Worksheet Patient Problems: Problems Problem Status Onset Schizophrenia, paranoid, chronic Acute Trichotillomania Acute Acute psychosis Chronic Alcohol use disorder, severe, in sustained remission Chronic
[2016-12-23] MEDS: IBUPROFEN 200 MG TAB PO PRN (18:41)
[2016-12-23] MEDS: QUEtiapine FUMARATE 200 MG TAB PO SCH (22:12)
[2016-12-24] MEDS: IBUPROFEN 200 MG TAB PO PRN ×2 (01:10→22:22)
[2016-12-24] MEDS: MELATONIN 3 MG TAB PO PRN (01:11)
[2016-12-24] MEDS: hydrOXYzine HCL 25 MG TAB PO PRN (01:11)
[2016-12-24] MEDS: MULTIVITAMINS 1 EACH TAB PO SCH (08:47)
[2016-12-24] MEDS: AQUAPHOR OINTMENT 3.5 OZ JAR TP SCH ×2 (08:53→22:27)
--- NOTE | 2016-12-24 17:32 | SOAPPROG ---
SOAP Progress Note Assessment/Plan: Assessment:Patient with schizophrenia with continued delusion she is ; even though, her test is negative. She is demanding to leave tomorrow to go to a doctor's appointment. She says her brother will be picking her up. She angrily left the interview after not getting confirmation she would be leaving tomorrow. She is compliant with the 400 MG of Seroquel at night. Her insight and judgment are still poor. Her urine test was negative. Plan: Will continue to encourage her to take her medication as prescribed. She most like needs and increased dose of Seroquel or additional medications. 12/21/16 16:10 12/22/16 12:22 12/23/16 15:17 12/24/16 17:24 12/24/16 17:32 Subjective: She reports she is going to the doctor with her brother tomorrow. She will go the [facility] or another doctor's office to get blood work. She reports her bother will be coming to get her, and he can check her out because he is her guardian. "Either you're going to let me out or he's going to check me out permanently and send me to [place]. She reports her lives in [place]. "You can't hold me because he has power of assistant prosecuting attorney, Girlfriend!" "Either you let me out or I'm going to push myself out." Sleep- Great. She reports her only problem is "Just people shitting in my breakfast." "Is [facility] on [place]." She asked the last question numerous times. Objective: Vital Signs Temp Pulse Resp BP Pulse Ox 36.5 C 97 12 98/63 L 95 12/24/16 06:00 12/24/16 06:00 12/24/16 06:00 12/24/16 06:00 12/24/16 06:00 female with short patchy hair, sitting at a table with several composition books in front of her along with markers. Good eye contact. Demanding tone of voice. Mood- "Beautiful." Affect- labile. Thought Process- Perseverating about leaving. Thought Content - No SI/HI . NO A.VH. +delusional. - Time Spent With Patient Time Spent With Patient: 15 - Pending Discharge Pending Discharge Within 24 Hours: No Pending Discharge Within 48 Hours: No ICD10 Worksheet Patient Problems: Problems Problem Status Onset Schizophrenia, paranoid, chronic Acute Trichotillomania Acute Acute psychosis Chronic Alcohol use disorder, severe, in sustained remission Chronic
[2016-12-24] MEDS: QUEtiapine FUMARATE 200 MG TAB PO SCH (22:19)
[2016-12-25] MEDS: MULTIVITAMINS 1 EACH TAB PO SCH (08:49)
[2016-12-25] MEDS: AQUAPHOR OINTMENT 3.5 OZ JAR TP SCH ×2 (08:50→21:03)
--- NOTE | 2016-12-25 12:43 | SOAPPROG ---
SOAP Progress Note Assessment/Plan: Assessment: 12/25/16 12:38 Plan: 1. Patient has only been compliant with HS Seroquel dose since 12/22/16. Will likely need a higher dose to treat her psychosis, however, would recommend longer on current dose before titrating. 2. According to Hira MORRISON, patient's brother, who is medical POA, wants to seek placement in [place] [facility] [place]. It's unclear whether or not patient is appropriate for their facility. Brother does not seem willing to consider any other options at this time. Patient would be good candidate for stepdown facility, ie [facility] or similar. She was living in nursing home in [place] and per brother was keeping her outpatient appts with [facility]. Subjective: Met with patient and discussed with staff. Patient continues to exhibit paranoid delusions. Over the weekend, she accused staff nurse icu resource team of "giving everyone HIV." Patient continues to believe she herself contracted HIV from [facility] who was part of the sex ring she imagines was going on where she lived. Despite being informed that both her HIV and tests were negative, patient persists in her delusions. Last week, patient refused to take her Seroquel. She started taking it again on 12/22/16. This is similar to her behavior while at [facility] in 10/2016. She initially refused to take Seroquel, but was persuaded by her brother and staff and eventually maintained compliance on 300mg. She is currently taking 400mg, will likely need titrated to higher dose. She was also taking Tegretol at [place], but as patient has not demonstrated sxs of chandu and brother reports prior dx of CPS, there is no indication for a mood stabilizer this point. Patient denies any AH/VH, and denies any SI/HI. Objective: Vital Signs Temp Pulse Resp BP Pulse Ox 36.7 C 94 16 119/69 97 12/25/16 06:00 12/25/16 06:00 12/25/16 06:00 12/25/16 06:00 12/25/16 06:00 MSE: Short, stubbly hair (most of it has been shaved and/or pulled out since last hospital admit). Affect: Irritable Mood: "OK" TP: Tangential, perseverative TC: paranoid, delusions, no AH/VH, no SI/HI Insight/Judgment: Impaired - Time Spent With Patient Time Spent With Patient: 20" - Pending Discharge Pending Discharge Within 24 Hours: No Pending Discharge Within 48 Hours: No ICD10 Worksheet Patient Problems: Problems Problem Status Onset Schizophrenia, paranoid, chronic Acute Trichotillomania Acute Acute psychosis Chronic Alcohol use disorder, severe, in sustained remission Chronic - ICD10 Problem Qualifiers (1) Alcohol use disorder, severe, in sustained remission (2) Schizophrenia, paranoid, chronic (3) Trichotillomania
[2016-12-25] MEDS: hydrOXYzine HCL 25 MG TAB PO PRN ×2 (15:07→21:30)
[2016-12-25] MEDS: IBUPROFEN 200 MG TAB PO PRN (15:07)
[2016-12-25] MEDS: QUEtiapine FUMARATE 200 MG TAB PO SCH (21:04)
[2016-12-25] MEDS: ACETAMINOPHEN 325 MG TAB PO PRN (21:31)
[2016-12-25] MEDS: MELATONIN 3 MG TAB PO PRN (21:32)
[2016-12-26] MEDS: IBUPROFEN 200 MG TAB PO PRN ×3 (03:29→21:13)
[2016-12-26] MEDS: hydrOXYzine HCL 25 MG TAB PO PRN ×3 (03:30→21:12)
[2016-12-26] MEDS: AQUAPHOR OINTMENT 3.5 OZ JAR TP SCH ×2 (07:52→21:17)
[2016-12-26] MEDS: MULTIVITAMINS 1 EACH TAB PO SCH (09:08)
--- NOTE | 2016-12-26 12:27 | SOAPPROG ---
SOAP Progress Note Assessment/Plan: Assessment: 12/25/16 12:38 Plan: 1. Patient has only been compliant with HS Seroquel dose since 12/22/16. Will likely need a higher dose to treat her psychosis, however, would recommend longer on current dose before titrating. 2. According to Hira MORRISON, patient's brother, who is medical POA, wants to seek placement in [place] [facility] [place]. It's unclear whether or not patient is appropriate for their facility. Brother does not seem willing to consider any other options at this time. Patient would be good candidate for stepdown facility, ie [facility] or similar. She was living in care home in [place] and per brother was keeping her outpatient appts with [facility]. 12/26/16 12:24 Plan: 1. CCM. Plan to increase Seroquel by end of the week. 2. Long discussion with CC and staff today regarding placement. Brother still wants placement in [place] [facility] [place], however, according to CC, this may take anywhere from 1 to 3 weeks, if she will be accepted at all. MD recommends family think about a transitional plan to support patient and provide some supervision until they can find an appropriate longer term placement for her. MD suggested family consider 1) staying with brother, 2) staying with family friend, 3) staying in motel near her brother so he can provide support & encourage compliance with treatment. CC has also encouraged brother to look at SNF's on the [facility] where patient was living prior to her 2 recent hospitalizations. This would be closer to where her brother lives. 3. Place on 10 ft restriction from peer d/t to sending "love letters" and other inappropriate communications. Subjective: Met with patient and discussed with staff. Patient continues to defy unit rules and is uncooperative with staff directions usually when in group setting. When MD and RN met with patient, she was pleasant and cooperative. She requested treatment for severe dryness and cracking of skin on her heels and soles of her feet. MD recommended application of topical lotion TID. Her skin is cracked, but there is no bleeding. Will consult wound care if condition worsens or does not improve with lotion. Patient said she wanted to be discharged soon so she could go to [place]. MD said he thought she told him a week ago that she wanted to go to [place] b/c her daughter was there, but patient says she plans to go to [place] to "get ." Later, staff told that patient has been passing notes that says "I love you" to a male peer on the unit. When patient was told she would need to be on 10ft restriction from this peer, she said he was her "." Patient does not demonstrate any signs of responding to internal/external stimuli. She denies any AH/VH. Her primary symptom of psychosis appears to be delusions. She denies any SI/HI. Objective: Vital Signs Temp Pulse Resp BP Pulse Ox 36.7 C 84 12 119/55 L 95 12/26/16 06:00 12/26/16 06:00 12/26/16 06:00 12/26/16 06:00 12/26/16 06:00 MSE: Short, wearing jeans and T-shirt. She shows MD and RN cracked heels and soles of feet. Pleasant, cooperative. Affect: Euthymic Mood: "Fine" TP: Tangential, illogical TC: Delusions of marriage, paranoia about health issues , no AH/VH, denies SI/HI Insight/Judgment: Impaired - Time Spent With Patient Time Spent With Patient: 25" - Pending Discharge Pending Discharge Within 24 Hours: No ICD10 Worksheet Patient Problems: Problems Problem Status Onset Schizophrenia, paranoid, chronic Acute Trichotillomania Acute Acute psychosis Chronic Alcohol use disorder, severe, in sustained remission Chronic - ICD10 Problem Qualifiers (1) Alcohol use disorder, severe, in sustained remission (2) Schizophrenia, paranoid, chronic (3) Trichotillomania
[2016-12-26] MEDS: MELATONIN 3 MG TAB PO PRN (21:13)
[2016-12-26] MEDS: QUEtiapine FUMARATE 200 MG TAB PO SCH (21:14)
[2016-12-27] MEDS: IBUPROFEN 200 MG TAB PO PRN ×2 (12:13→21:13)
[2016-12-27] MEDS: MULTIVITAMINS 1 EACH TAB PO SCH (12:13)
[2016-12-27] MEDS: hydrOXYzine HCL 25 MG TAB PO PRN ×3 (12:15→23:51)
--- NOTE | 2016-12-27 13:34 | SOAPPROG ---
SOAP Progress Note Assessment/Plan: Assessment: 12/25/16 12:38 Plan: 1. Patient has only been compliant with HS Seroquel dose since 12/22/16. Will likely need a higher dose to treat her psychosis, however, would recommend longer on current dose before titrating. 2. According to Hira MORRISON, patient's brother, who is medical POA, wants to seek placement in [place] [facility]. It's unclear whether or not patient is appropriate for their facility. Brother does not seem willing to consider any other options at this time. Patient would be good candidate for stepdown facility, ie [facility] or similar. She was living in residential in [place] and per brother was keeping her outpatient appts with [facility], operated by [facility]. 12/26/16 12:24 Plan: 1. CCM. Plan to increase Seroquel by end of the week. 2. Long discussion with CC and staff today regarding placement. Brother still wants placement in [place] [facility], however, according to CC, this may take anywhere from 1 to 3 weeks, if she will be accepted at all. MD recommends family think about a transitional plan to support patient and provide some supervision until they can find an appropriate longer term placement for her. MD suggested family consider 1) staying with brother, 2) staying with family friend, 3) staying in motel near her brother so he can provide support & encourage compliance with treatment. CC has also encouraged brother to look at SNF's on the [facility] where patient was living prior to her 2 recent hospitalizations. This would be closer to where her brother lives. 3. Place on 10 ft restriction from peer d/t to sending "love letters" and other inappropriate communications. 12/27/16 13:28 Plan: 1. Patient requests to soak feet in Epsom salts. MD approved. 2. Continue topical skin care for dry, cracked feet. 3. Patient educated that she will need to be off assault precautions in order to have a razor to shave. Yesterday, she threw glue at therapist in group. Continue on 10ft restriction from male peer. 4. Increase Seroquel to 500mg QHS for psychosis. Subjective: Met with patient with RN present and discussed with staff. Patient requested to sit in bathtub and soak her whole body in Epsom salts. MD suggested she use a foot bath and use Epsom salts to soothe discomfort from her dry, cracked skin on feet. She agreed. She continues to use topical lotion for dryness. Patient also requested to shave her legs. MD advised that she needs to be off assault precautions in order to be allowed to use a razor. She was placed on AP yesterday after throwing a glue bottle at therapist in group. Staff have reviewed patient's behavior support plan in detail with her. She understands that she must exhibit appropriate behavior in groups and on unit and be respectful toward peers and staff. When MD meets with patient, she is usually calm, pleasant and cooperative, however, in other settings, she has escalated and become demanding and quite irritable. She says she is trying to work on controlling her temper. Patient is still fixated on delusion that one of her peers is the father of her daughter, but she also thinks her "" is waiting for her in [place]. She denies any AH/VH, SI/HI at this time. Objective: Vital Signs Temp Pulse Resp BP Pulse Ox 36.3 C 88 16 111/66 96 12/27/16 06:00 12/27/16 06:00 12/27/16 06:00 12/27/16 06:00 12/27/16 06:00 MSE: Short, stubbly hair, sleeveless T-shirt and jeans, barefoot. Affect: Euthymic Mood: "OK" TP: Perseverative, tangential TC: Denies AH/VH, no int/ ext stim, obvious delusions (marriage and ), no paranoia, denies SI/HI Insight/Judgment: Impaired - Time Spent With Patient Time Spent With Patient: 25" - Pending Discharge Pending Discharge Within 24 Hours: No ICD10 Worksheet Patient Problems: Problems Problem Status Onset Schizophrenia, paranoid, chronic Acute Trichotillomania Acute Acute psychosis Chronic Alcohol use disorder, severe, in sustained remission Chronic - ICD10 Problem Qualifiers (1) Alcohol use disorder, severe, in sustained remission (2) Schizophrenia, paranoid, chronic (3) Trichotillomania
[2016-12-27] MEDS: AQUAPHOR OINTMENT 3.5 OZ JAR TP SCH ×2 (14:28→21:12)
[2016-12-27] MEDS: QUEtiapine FUMARATE 25 MG TAB PO PRN ×2 (18:22→23:52)
[2016-12-27] MEDS: QUEtiapine FUMARATE 200 MG TAB PO SCH (21:12)
[2016-12-27] MEDS: ACETAMINOPHEN 325 MG TAB PO PRN (23:55)
[2016-12-28] MEDS: AQUAPHOR OINTMENT 3.5 OZ JAR TP SCH ×2 (09:27→21:01)
[2016-12-28] MEDS: hydrOXYzine HCL 25 MG TAB PO PRN ×3 (09:28→23:59)
[2016-12-28] MEDS: MULTIVITAMINS 1 EACH TAB PO SCH (09:28)
[2016-12-28] MEDS: QUEtiapine FUMARATE 25 MG TAB PO PRN ×2 (09:31→16:13)
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
[2016-12-28] MEDS: IBUPROFEN 200 MG TAB PO PRN (16:12)
[2016-12-28] MEDS: QUEtiapine FUMARATE 200 MG TAB PO SCH (20:55)
[2016-12-29] MEDS: AQUAPHOR OINTMENT 3.5 OZ JAR TP SCH ×2 (10:25→20:58)
[2016-12-29] MEDS: MULTIVITAMINS 1 EACH TAB PO SCH (10:25)
[2016-12-29] MEDS: QUEtiapine FUMARATE 25 MG TAB PO PRN ×2 (10:31)
[2016-12-29] MEDS: IBUPROFEN 200 MG TAB PO PRN ×3 (10:31→20:52)
[2016-12-29] MEDS: hydrOXYzine HCL 25 MG TAB PO PRN ×2 (10:31→20:52)
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
[2016-12-29] MEDS: QUEtiapine FUMARATE 200 MG TAB PO SCH (20:48)
[2016-12-30] MEDS: hydrOXYzine HCL 25 MG TAB PO PRN ×2 (05:43→15:30)
[2016-12-30] MEDS: IBUPROFEN 200 MG TAB PO PRN (05:47)
[2016-12-30] MEDS: QUEtiapine FUMARATE 25 MG TAB PO PRN ×2 (05:47→15:33)
[2016-12-30] MEDS: MULTIVITAMINS 1 EACH TAB PO SCH (08:23)
[2016-12-30] MEDS: AQUAPHOR OINTMENT 3.5 OZ JAR TP SCH ×2 (08:47→20:51)
--- NOTE | 2016-12-30 12:38 | SOAPPROG ---
SOAP Progress Note Assessment/Plan: Assessment: 51yo with chronic paranoid SZP and hx of trichtillomania, 20+yr reportedly stable on low dose Seroquel. most recent inpt psych 09/2016 and n/c w / meds after d/c 12/30/16 12:31 per staff, slept 7.5 hrs. requested prn seroquel and ativan at 0545 attending grps this AM. continues on behav plan and inapprop sexual bx precautions due to delusion abt peer being father of her unborn baby. maintains delusions about being . taking scheduled hs seroquel. pt declined interview. "I don't feel like talking with you right now, in fact I don't want to even talk to you today". mse: casually dressed, nml eye contact, nml gait and psychom activity, speech nml rate/vol, affect seems irritable, continues w/delusions as noted per staff, did not appear responding to int stim, and has not had any si/hi. i/j poor. PLAN: on STC. cont seroquel 600mg hs and prns as ordered. concern for med n/c in unstructured setting given lack of insight and hx of n/c. brother who is POA is assisting w/finding placement, has bed avail at [facility] [place] end of Dec. Objective: Vital Signs Temp Pulse Resp BP Pulse Ox 36.3 C 83 14 119/58 L 97 12/30/16 06:00 12/30/16 06:00 12/30/16 06:00 12/30/16 06:00 12/30/16 06:00 - Time Spent With Patient Time Spent With Patient: <15 - Pending Discharge Pending Discharge Within 24 Hours: No Pending Discharge Within 48 Hours: No ICD10 Worksheet Patient Problems: Problems Problem Status Onset Schizophrenia, paranoid, chronic Acute Trichotillomania Acute Acute psychosis Chronic Alcohol use disorder, severe, in sustained remission Chronic
[2016-12-30] MEDS: QUEtiapine FUMARATE 200 MG TAB PO SCH (20:46)
[2016-12-31] MEDS: hydrOXYzine HCL 25 MG TAB PO PRN ×3 (06:26→21:30)
[2016-12-31] MEDS: IBUPROFEN 200 MG TAB PO PRN ×2 (06:27→12:47)
[2016-12-31] MEDS: QUEtiapine FUMARATE 25 MG TAB PO PRN ×2 (06:27→12:47)
[2016-12-31] MEDS: MULTIVITAMINS 1 EACH TAB PO SCH (09:20)
[2016-12-31] MEDS: AQUAPHOR OINTMENT 3.5 OZ JAR TP SCH ×2 (09:21→21:26)
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
[2016-12-31] MEDS: QUEtiapine FUMARATE 300 MG TAB PO SCH (21:25)
[2017-01-01] MEDS: IBUPROFEN 200 MG TAB PO PRN (00:18)
[2017-01-01] MEDS: QUEtiapine FUMARATE 25 MG TAB PO PRN ×2 (00:18→18:24)
[2017-01-01] MEDS: MULTIVITAMINS 1 EACH TAB PO SCH (13:44)
[2017-01-01] MEDS: AQUAPHOR OINTMENT 3.5 OZ JAR TP SCH ×2 (13:44→22:27)
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
[2017-01-01] MEDS: MELATONIN 3 MG TAB PO PRN (18:21)
[2017-01-01] MEDS: hydrOXYzine HCL 25 MG TAB PO PRN (18:22)
[2017-01-01] MEDS: QUEtiapine FUMARATE 300 MG TAB PO SCH (22:27)
[2017-01-02] MEDS: MULTIVITAMINS 1 EACH TAB PO SCH (08:39)
[2017-01-02] MEDS: AQUAPHOR OINTMENT 3.5 OZ JAR TP SCH ×2 (08:42→20:43)
[2017-01-02] MEDS: hydrOXYzine HCL 25 MG TAB PO PRN ×3 (08:42→22:58)
[2017-01-02] MEDS: QUEtiapine FUMARATE 25 MG TAB PO PRN ×3 (08:42→20:45)
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
[2017-01-02] MEDS: IBUPROFEN 200 MG TAB PO PRN (16:33)
[2017-01-02] MEDS: MELATONIN 3 MG TAB PO PRN (20:45)
[2017-01-02] MEDS: QUEtiapine FUMARATE 300 MG TAB PO SCH (22:55)
[2017-01-03] MEDS: IBUPROFEN 200 MG TAB PO PRN ×3 (00:47→14:28)
[2017-01-03] MEDS: QUEtiapine FUMARATE 25 MG TAB PO PRN (08:50)
[2017-01-03] MEDS: hydrOXYzine HCL 25 MG TAB PO PRN ×2 (08:50→14:27)
[2017-01-03] MEDS: MULTIVITAMINS 1 EACH TAB PO SCH (08:50)
[2017-01-03] MEDS: AQUAPHOR OINTMENT 3.5 OZ JAR TP SCH ×2 (10:03→21:48)
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
[2017-01-03] MEDS ORDERED: TUBERCULIN (PPD) 5 TU/0.1 ML SYRINGE ID ONE (15:57)
[2017-01-03] MEDS: QUEtiapine FUMARATE 300 MG TAB PO SCH (21:48)
[2017-01-03] MEDS: QUEtiapine FUMARATE 100 MG TAB PO SCH (21:48)
[2017-01-04] MEDS: hydrOXYzine HCL 25 MG TAB PO PRN ×3 (01:51→22:15)
[2017-01-04] MEDS: IBUPROFEN 200 MG TAB PO PRN ×3 (01:51→22:15)
[2017-01-04] MEDS: MULTIVITAMINS 1 EACH TAB PO SCH (08:46)
[2017-01-04] MEDS: AQUAPHOR OINTMENT 3.5 OZ JAR TP SCH ×2 (08:47→21:47)
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
[2017-01-04] MEDS: QUEtiapine FUMARATE 300 MG TAB PO SCH (22:11)
[2017-01-04] MEDS: BENZTROPINE MESYLATE 1 MG TAB PO SCH (22:11)
[2017-01-04] MEDS: QUEtiapine FUMARATE 100 MG TAB PO SCH (22:11)
[2017-01-05] MEDS: QUEtiapine FUMARATE 25 MG TAB PO PRN (00:58)
[2017-01-05] MEDS: ACETAMINOPHEN 325 MG TAB PO PRN ×2 (03:43→23:29)
[2017-01-05] MEDS: AQUAPHOR OINTMENT 3.5 OZ JAR TP SCH ×3 (08:57→21:24)
[2017-01-05] MEDS: BENZTROPINE MESYLATE 1 MG TAB PO SCH ×2 (08:57→22:04)
[2017-01-05] MEDS: MULTIVITAMINS 1 EACH TAB PO SCH (08:57)
[2017-01-05] MEDS: IBUPROFEN 200 MG TAB PO PRN ×2 (09:01→20:09)
[2017-01-05] MEDS: hydrOXYzine HCL 25 MG TAB PO PRN ×2 (09:01→20:10)
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
[2017-01-05] MEDS: QUEtiapine FUMARATE 300 MG TAB PO SCH (22:03)
[2017-01-05] MEDS: QUEtiapine FUMARATE 100 MG TAB PO SCH (22:04)
[2017-01-05] MEDS: MAGNESIUM HYDROXIDE 30 ML UDCUP PO PRN (23:30)
[2017-01-06] MEDS: MULTIVITAMINS 1 EACH TAB PO SCH (09:59)
[2017-01-06] MEDS: BENZTROPINE MESYLATE 1 MG TAB PO SCH ×2 (09:59→22:27)
[2017-01-06] MEDS: hydrOXYzine HCL 25 MG TAB PO PRN ×2 (09:59→21:44)
[2017-01-06] MEDS: AQUAPHOR OINTMENT 3.5 OZ JAR TP SCH ×2 (10:01→22:31)
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
[2017-01-06] MEDS: MELATONIN 3 MG TAB PO PRN (21:44)
[2017-01-06] MEDS: QUEtiapine FUMARATE 100 MG TAB PO SCH (22:27)
[2017-01-06] MEDS: QUEtiapine FUMARATE 300 MG TAB PO SCH (22:27)
[2017-01-07] MEDS: MULTIVITAMINS 1 EACH TAB PO SCH (09:41)
[2017-01-07] MEDS: BENZTROPINE MESYLATE 1 MG TAB PO SCH ×2 (09:41→22:13)
[2017-01-07] MEDS: hydrOXYzine HCL 25 MG TAB PO PRN ×2 (09:42→22:16)
[2017-01-07] MEDS: AQUAPHOR OINTMENT 3.5 OZ JAR TP SCH ×2 (10:26→22:13)
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
[2017-01-07] MEDS: QUEtiapine FUMARATE 300 MG TAB PO SCH (22:13)
[2017-01-07] MEDS: QUEtiapine FUMARATE 100 MG TAB PO SCH (22:14)
[2017-01-07] MEDS: MELATONIN 3 MG TAB PO PRN (22:15)
[2017-01-07] MEDS: IBUPROFEN 200 MG TAB PO PRN (22:15)
[2017-01-08] MEDS: ACETAMINOPHEN 325 MG TAB PO PRN (01:48)
[2017-01-08] MEDS: MAGNESIUM HYDROXIDE 30 ML UDCUP PO PRN (01:48)
[2017-01-08] MEDS: IBUPROFEN 200 MG TAB PO PRN ×3 (04:13→22:05)
[2017-01-08] MEDS: hydrOXYzine HCL 25 MG TAB PO PRN ×3 (04:14→22:08)
[2017-01-08] MEDS: BENZTROPINE MESYLATE 1 MG TAB PO SCH ×2 (10:00→22:05)
[2017-01-08] MEDS: MULTIVITAMINS 1 EACH TAB PO SCH (10:18)
[2017-01-08] MEDS: AQUAPHOR OINTMENT 3.5 OZ JAR TP SCH ×2 (10:18→22:06)
--- NOTE | 2017-01-08 15:00 | SOAPPROG ---
SOAP Progress Note Assessment/Plan: Assessment: 51 yo f Schizophrenia, paranoid EtOH Dependence Seroquel increased to 800 mg at HS with minimal response so far. Consider increasing further. Consider changing antipsychotic if no response. Plan: No change today, but consider increasing quetiapine. 01/08/17 14:57 Subjective: "I have to leave tomorrow." Pt reports she has appt at [facility] and with her dentist tomorrow. This is not true as best I can determine. She repeats requests for suppies to shave her legs, which she has already done. Denies SI to me today. Objective: Vital Signs Temp Pulse Resp BP Pulse Ox 36.8 C 83 12 107/72 94 01/06/17 15:12 01/06/17 15:12 01/06/17 15:12 01/02/17 06:00 01/06/17 15:12 Medications Generic Name Dose Route Start Last Admin Trade Name Freq PRN Reason Stop Dose Admin Multi-Ingredient Ointment 1 manish 12/13/16 13:45 01/08/17 10:18 Aquaphor Ointment TP 06/11/17 13:44 Not Given BID LOTUS Benztropine Mesylate 1 mg 01/04/17 21:00 01/08/17 10:00 Cogentin PO 07/03/17 20:59 1 mg BID LOTUS Multivitamins 1 each 12/14/16 09:00 01/08/17 10:18 Tab-A-Irma PO 06/12/17 08:59 Not Given DAILY LOTUS Quetiapine Fumarate 600 mg 01/03/17 15:41 01/07/17 22:13 Seroquel PO 06/29/17 20:59 600 mg HS LOTUS Quetiapine Fumarate 200 mg 01/06/17 13:14 01/07/17 22:14 Seroquel PO 07/02/17 20:59 200 mg HS LOTUS MSE Awake, alert, but not oriented to date. Speech is garbled and irregular in rate and tone. thought processes illogical, disjointed, difficult to follow Lacks insight. ICD10 Worksheet Patient Problems: Problems Problem Status Onset Schizophrenia, paranoid, chronic Acute Trichotillomania Acute Acute psychosis Chronic Alcohol use disorder, severe, in sustained remission Chronic
[2017-01-08] MEDS: QUEtiapine FUMARATE 300 MG TAB PO SCH (22:06)
[2017-01-08] MEDS: QUEtiapine FUMARATE 100 MG TAB PO SCH (22:07)
[2017-01-08] MEDS: MELATONIN 3 MG TAB PO PRN (22:08)
[2017-01-09] MEDS: MULTIVITAMINS 1 EACH TAB PO SCH (08:50)
[2017-01-09] MEDS: hydrOXYzine HCL 25 MG TAB PO PRN ×2 (08:50→21:21)
[2017-01-09] MEDS: BENZTROPINE MESYLATE 1 MG TAB PO SCH ×2 (08:50→21:18)
[2017-01-09] MEDS: AQUAPHOR OINTMENT 3.5 OZ JAR TP SCH ×2 (09:43→21:26)
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
[2017-01-09] MEDS: QUEtiapine FUMARATE 300 MG TAB PO SCH (21:18)
[2017-01-09] MEDS: IBUPROFEN 200 MG TAB PO PRN (21:18)
[2017-01-09] MEDS: QUEtiapine FUMARATE 100 MG TAB PO SCH (21:18)
[2017-01-09] MEDS: MELATONIN 3 MG TAB PO PRN (21:21)
[2017-01-10] MEDS: BENZTROPINE MESYLATE 1 MG TAB PO SCH ×2 (09:05→11:23)
[2017-01-10] MEDS: MULTIVITAMINS 1 EACH TAB PO SCH ×2 (09:05→11:24)
[2017-01-10] MEDS: AQUAPHOR OINTMENT 3.5 OZ JAR TP SCH ×2 (09:07→20:13)
--- NOTE | 2017-01-10 12:01 | SOAPPROG ---
SOAP Progress Note Assessment/Plan: Assessment: 51 yo f Schizophrenia, paranoid EtOH Dependence Improving thought processes and improving mood stability, less irritable. Continues to have delusional belief she is . Plan: Continue quetiapine at HS. Change MVI to Vit to try and enhance adherence. 01/10/17 12:01 Subjective: "They did a test and it came back positive but they said it was negative." Ms. Burrell is significantly more calm and cooperative. She had good sleep last night. She has some AM sedation from the HS dose of Seroquel. However, the 800 mg HS dose of quetiapine appears to be helping reduce her irritability and reducing some of her positive symptoms. Ms. Burrell continues to have a delusional belief that she is . Ms. Burrell tells me that her father will pay for a hotel room for her at the time of discharge. I am not sure if this is true. Objective: Vital Signs Temp Pulse Resp BP Pulse Ox 36.8 C 83 12 107/72 94 01/06/17 15:12 01/06/17 15:12 01/06/17 15:12 01/02/17 06:00 01/06/17 15:12 Medications Generic Name Dose Route Start Last Admin Trade Name Freq PRN Reason Stop Dose Admin Quetiapine Fumarate 200 mg 01/06/17 13:14 01/09/17 21:18 Seroquel PO 07/02/17 20:59 200 mg HS LOTUS Benztropine Mesylate 1 mg 01/04/17 21:00 01/10/17 11:23 Cogentin PO 07/03/17 20:59 Not Given BID LOTUS Multi-Ingredient Ointment 1 manish 12/13/16 13:45 01/10/17 09:07 Aquaphor Ointment TP 06/11/17 13:44 Not Given BID LOTUS Multivitamins 1 each 12/14/16 09:00 01/10/17 11:24 Tab-A-Irma PO 06/12/17 08:59 Not Given DAILY LOTUS Quetiapine Fumarate 600 mg 01/03/17 15:41 01/09/17 21:18 Seroquel PO 06/29/17 20:59 600 mg HS LOTUS MSE Awake, alert, casually dressed, grooming reasonable. Speech less pressured, less rapid, more conversational mood and affect more congruent and considerably less labile. Thought processes linear, but delusions present Lacks insight, lacks judgment Sleep: 8 hours plus ICD10 Worksheet Patient Problems: Problems Problem Status Onset Schizophrenia, paranoid, chronic Acute Trichotillomania Acute Acute psychosis Chronic Alcohol use disorder, severe, in sustained remission Chronic
[2017-01-10] MEDS ORDERED: BENZTROPINE MESYLATE 1 MG TAB PO PRN (12:03)
[2017-01-10] MEDS: hydrOXYzine HCL 25 MG TAB PO PRN ×2 (13:40→20:11)
[2017-01-10] MEDS: ACETAMINOPHEN 325 MG TAB PO PRN ×2 (13:49→20:10)
[2017-01-11] MEDS: ACETAMINOPHEN 325 MG TAB PO PRN ×2 (02:08→14:26)
[2017-01-11] MEDS: hydrOXYzine HCL 25 MG TAB PO PRN ×4 (02:08→21:34)
[2017-01-11 06:15] VITALS: BP 104/70; PULSE 69; RESP 14; TEMP 97.6; O2SAT 95
[2017-01-11] MEDS ORDERED: PRENATAL VIT 1 EACH TAB PO SCH (08:00)
[2017-01-11] MEDS: PRENATAL VIT 1 EACH TAB PO SCH (08:49)
[2017-01-11] MEDS: AQUAPHOR OINTMENT 3.5 OZ JAR TP SCH ×2 (08:50→21:29)
[2017-01-11] MEDS: IBUPROFEN 200 MG TAB PO PRN (14:27)
--- NOTE | 2017-01-11 14:47 | SOAPPROG ---
SOAP Progress Note Assessment/Plan: Assessment: 51 yo f Schizophrenia, paranoid EtOH Dependence Improving thought processes and improving mood stability, less irritable. Continues to have delusional belief she is . Believes the police are following and monitoring her. It is our impression and opinion that Ms. Burrell is at her baseline mental state and level of functioning. She has paranoid delusions, but can function with these delusions. She denies dangerousness, and has not been irritable with us for two days at this point in time. Plan: Continue quetiapine at HS. Try 700 mg to see if this helps keep mood lability under control, and causes less AM sedation. 01/11/17 14:49 Subjective: "The police are circling this place." Ms. Burrell remains paranoid, but is considerably more pleasant and cooperative with myself and with staff. She remains minimally interactive with other patients. She is working on her own disposition. Her plan today is to obtain a short term hotel room and follow up with her outpatient care at the [facility]. She is considering relocating to [place] since her father lives there. Complains of AM sedation from 800 mg of quetiapine at HS. We agree to try 700 mg at HS. Objective: Vital Signs Temp Pulse Resp BP Pulse Ox 36.4 C 69 14 104/70 95 01/11/17 06:00 01/11/17 06:00 01/11/17 06:00 01/11/17 06:00 01/11/17 06:00 Medications Generic Name Dose Route Start Last Admin Trade Name Freq PRN Reason Stop Dose Admin Benztropine Mesylate 1 mg 01/10/17 12:03 Cogentin PO 07/03/17 20:59 BID PRN EPS Quetiapine Fumarate 100 mg 01/11/17 21:00 Seroquel PO 07/10/17 20:59 [facility] Prenat Multivit/Ciales/Iron/Folic Ac 1 each 01/11/17 08:00 01/11/17 08:49 PO 07/10/17 07:59 1 each DAILY8 LOTUS Quetiapine Fumarate 600 mg 01/11/17 21:00 Seroquel PO 07/10/17 20:59 HS LOTUS MSE Awake, alert, reasonable grooming. Moderately cooperative. Speech not rapid nor pressured today. Thought processes linear Thought content with paranoid delusions. No insight into illness. Lacks judgment. ICD10 Worksheet Patient Problems: Problems Problem Status Onset Schizophrenia, paranoid, chronic Acute Trichotillomania Acute Acute psychosis Chronic Alcohol use disorder, severe, in sustained remission Chronic
[2017-01-11] MEDS ORDERED: QUEtiapine FUMARATE 300 MG TAB PO SCH (21:00)
[2017-01-11] MEDS ORDERED: QUEtiapine FUMARATE 100 MG TAB PO SCH (21:00)
[2017-01-12] MEDS: IBUPROFEN 200 MG TAB PO PRN (00:24)
[2017-01-12] MEDS: PRENATAL VIT 1 EACH TAB PO SCH (08:48)
--- NOTE | 2017-01-12 10:08 | BDS ---
[f rep st] BEHAVIORAL HEALTH DISCHARGE SUMMARY DIAGNOSES: 1. Schizophrenia, paranoid. 2. Trichotillomania. 3. Polysubstance dependence. 4. History of breast lump, biopsied and found to be benign. PROCEDURES: None. COMPLICATIONS: None. REVIEW OF CASE: The patient is a 51-year-old female, admitted for her first psychiatric hospitalization at [facility] inpatient behavioral healthy unit on 12/13/2016. She has not been living in the [facility] for very long. She had been in [place]. She has a brother in this area, and this appears to be the reason why she came here. She initially presented with significant psychosis and confusion. As we learned history, both from the patient and from collateral information of family members, that she has a long history of schizophrenia. She has been hospitalized multiple times in the past. She has been treated with many different antipsychotic medications, and would only take quetiapine for us. Fortunately, quetiapine over a prolonged period of time, seemed to work reasonably well for her. We worked the dose of quetiapine up to 800 mg at bedtime. She had excess daytime sedation on this dose, so we backed it off to 700 mg at bedtime. On this dose, her mood was much better. Her irritability was under control. She still had paranoid delusions, the most persistent one being that she is , when in fact her test was negative. While she had persistent delusions, she was able to cooperate much better with caregivers, staff members and other patients up on our inpatient psychiatric unit. She did not show evidence of dangerousness to others, nor hostility to others. She denied any dangerousness to herself. Since her mood has stabilized and her psychosis had ameliorated, and reached what appears to be a baseline level, I do assess her dangerousness risk is minimal at the time of discharge. She was initially admitted on a 72 hour mental health hold. A short term certification was taken out. We will be discontinuing the short term certification at the time of discharge. The current disposition plan is for the patient to go to a hotel in the [facility]. Her father will be helping to pay for short term housing for her. She has an appointment with the [facility] for an intake appointment on the day of discharge. We will provide her with prescriptions, to help her make it until the intake process with [facility] is completed. Also complicating this patient's ongoing care is significant substance use. She has significant alcohol use by history. She relates that she quit drinking many years ago, but has had several relapses since that time. She has also used opioid pain medications in the past. Her urine tox screen was negative on admission. We strongly encouraged sobriety, and she agrees that sobriety is good for her, and commits to remaining sober. We thought that the patient had reached maximum hospital benefit by 01/12/2017. As noted above, we assessed her dangerousness risk as minimal. She had some persistent delusions, but these were contained and not affecting her ongoing behavior. We put together a reasonable follow up plan with temporary housing and follow up at the [facility]. The patient herself is considering whether or not to stay in the [facility], and may move to [place], where her father lives to be closer to family. DISCHARGE MEDICATIONS: Include 700 mg of quetiapine at bedtime, and a vitamin, and we will be providing her a prescription for her quetiapine. FOLLOW UP: Her followup is with [facility], and she has an intake appointment. /[id number]
[2017-01-12] MEDS ORDERED: IBUPROFEN 200 MG TAB PO ONE (10:30)
[2017-01-12] MEDS ORDERED: hydrOXYzine HCL 50 MG TAB PO ONE (10:30)
== END 2017-01-12 11:11 | disposition home or self-care (01) | DRG 885 ==
LOC: BBEH 12-13 04:25
PROVIDERS: ADMIT Specialist; ATTEND Psychiatry & Neurology Behavioral Neurology & Neuropsychiatry
DX: F20.0 Paranoid schizophrenia (principal); F19.20 Other psychoactive substance dependence, uncomplicated; F63.3 Trichotillomania; Z72.0 Tobacco use; L85.3 Xerosis cutis; F10.20 Alcohol dependence, uncomplicated
CPT/HCPCS: 80305; G0480